=== PATIENT | male | born 1980 | race African-American/Black ===

== ENCOUNTER 2025-04-22 11:57 | Emergency (ER) | payer OTHER ==
[2025-04-22 12:41] LABS: #Basophils 0.04 10x3/uL (0.0-0.2); #Eosinophils Less than 0.03 10x3/uL (0.0-0.5); #Monocytes 0.48 10x3/uL (0.0-1.1); #Neutrophils 5.74 10x3/uL (1.5-8.4); %Basophils 0.5 % (0.0-2.0); %Eosinophils 0.0 % (0.0-6.0); %Lymphocytes 17.0 % (18.0-47.0); %Monocytes 6.4 % (0.0-10.0); %Neutrophils 76.0 % (40.0-75.0); Hematocrit 43.0 % (38.8-50.0); Hemoglobin 14.3 g/dL (13.5-17.5); Mean Corpuscular Hemoglobin 26.6 pg (27.0-33.0); Mean Corpuscular Volume 79.9 fL (81.2-95.1); Platelet Count 363 10x3/uL (150-450); Red Blood Cell (RBC) Count 5.38 10x6/uL (4.32-5.72); White Blood Cell (WBC) Count 7.55 10x3/uL (3.5-10.5)
[2025-04-22 12:58] LABS: ALT (SGPT) 15 U/L (Less than 45); AST (SGOT) 22 U/L (11-34); Albumin 4.6 g/dL (3.1-4.5); Alkaline Phosphatase 74 U/L (40-110); Anion Gap 13 mmol/L (10-20); BUN (Urea Nitrogen) 12 mg/dL (8.9-20.6); Bilirubin, Total 0.5 mg/dL (0.3-1.2); Calc. Creatinine Clearance 0 mL/min (70-130); Calcium 9.7 mg/dL (7.8-10.44); Carbon Dioxide 26 mmol/L (22-29); Chloride 104 mmol/L (98-107); Globulin 3.3 g/dL (2.4-3.5); Glucose 100 mg/dL (70-105); Potassium 4.3 mmol/L (3.5-5.1); Sodium 139 mmol/L (136-145)
== END 2025-04-22 13:22 | disposition home or self-care (01) ==
LOC: CSHERS 11:57 → EEVIPCON 11:57 → CSHERS 13:22
DX: K62.5 Hemorrhage of anus and rectum (principal); R03.0 Elevated blood-pressure reading, without diagnosis of hypertension; Z55.6 Problems related to health literacy
CPT/HCPCS: 36415; 80053; 85025; 86850; 86900; 86901; 99285